=== PATIENT | male | born 1975 | race Caucasian/White ===

== ENCOUNTER 2023-10-08 07:20 | Emergency (ER) | payer BC, SELFPAY ==
--- NOTE | ~2023-10-08 | CT_ITS ---
CT LUMBAR SPINE WITHOUT CONTRAST CLINICAL INFORMATION: Midline/left lumbar pain. COMPARISON: Lumbar spine radiographs 02/18/2010. TECHNIQUE: Multidetector CT acquisition of the lumbar spine is obtained without contrast. This CT examination was performed using dose optimization techniques as appropriate, variously including the following: *Automated exposure control *Adjustment of mA and/or kV according to patient size (this includes techniques or standardized protocols for targeted exams where dose is matched to indication/reason for exam; i.e. extremities or head) *Use of iterative reconstruction technique FINDINGS: There are 5 nonrib-bearing lumbar-type vertebral bodies. Lumbar alignment is normal. The vertebral body heights are maintained. There is moderate disc volume loss at L4-L5 and mild disc volume loss at L5-S1. There are multilevel endplate osteophytes. There are no acute fractures and there are no acute subluxations. No osseous erosive changes. There is vacuum phenomenon within the SI joints bilaterally. Mild aortoiliac atherosclerotic calcification. L1-L2: No definite disc contour abnormality. No appreciable central canal stenosis nor foraminal stenosis. L2-L3: Slight annular disc bulge and mild bilateral facet arthropathy without appreciable central canal stenosis nor significant foraminal stenosis. L3-L4: Small annular disc bulge and moderate bilateral hypertrophic facet arthropathy without appreciable central canal stenosis nor significant foraminal stenosis. L4-L5: Diffuse annular disc bulge and severe bilateral hypertrophic facet arthropathy. Findings in concert result in suspected mild narrowing of the central canal, narrowing of the left greater then right subarticular zones, and moderate bilateral foraminal stenosis. L5-S1: There is a diffuse annular disc bulge and there is moderate bilateral hypertrophic facet arthropathy. No appreciable central canal stenosis. Mild to moderate bilateral foraminal encroachment. CT/CT lumbar spine wo IV con IMPRESSION: * At L4-L5, advanced multifactorial degenerative changes result in suspected mild narrowing of the central canal, narrowing of the left greater then right subarticular zones, and moderate bilateral foraminal stenosis. * Additional degenerative findings as discussed above. * If pain persists, MRI would be more sensitive in evaluation.
[2023-10-08 07:27] VITALS: BP 188/112; PULSE 87; RESP 17; TEMP 37; O2SAT 99; BMI 31.8
--- NOTE | 2023-10-08 07:58 | ED_ITS ---
HPI - Back Pain/Injury General Chief Complaint: Back Pain/Injury Stated Complaint: Back pain Time Seen by Provider: 10/08/23 07:50 Source: patient Mode of arrival: ambulatory Limitations: no limitations History of Present Illness HPI Narrative: 48 year old male with pmhx of chronic back pain presents to the ED today for evaluation of acute onset low back pain x6 days. Endorses pain to his mid lumbar/left lumbar region beginning 6 days ago. Pain is exacerbated with bearing weight on his left lower extremity. Pain intermittently radiates down left thigh. Denies trauma/injury. Endorses history of chronic back pain with degenerative changes identified on MRI years ago. Pain has been under control for the last few years until 6 days ago. He states he has been unable to work due to the pain. He has been icing the area and taking Ibuprofen at home without relief of pain. Last dose of ibuprofen was yesterday. Denies IVDU. Denies fever, chills, neck pain, bowel or bladder incontinence or retention, numb ness/tingling/weakness in the lower extremities, dysuria, hematuria, saddle anesthesia. Related Data Previous Rx's Medication Instructions Recorded gabapentin 100 mg capsule 100 mg PO BID 14 days #28 caps 10/08/23 prednisone 20 mg tablet 40 mg (2 x 20 mg) PO DAILY 5 days 10/08/23 #10 tabs Allergies Allergy/AdvReac Type Severity Reaction Status Date / Time Penicillins [PCN] Allergy Hives Verified 10/08/23 07:26 Review of Systems Review of Systems: Constitutional: No fever, chills, fatigue, night sweats, weight changes ENT/Mouth: No ear pain, hearing loss, nasal congestion, sinus pain, rhinorrhea, sore throat Eyes: No eye pain, swelling, redness, vision changes, discharge Cardio: No chest pain, palpitations, CACERES, orthopnea, peripheral edema Pulm: No SOB, cough, sputum, wheezing, dyspnea, hemoptysis GI: No nausea, vomiting, hematemesis, abdominal pain, diarrhea, constipation, hematochezia, melena : No irregular bleeding, dysuria, frequency, urgency, hesitancy, hematuria, flank pain, urinary flow changes, urinary incontinence or retention MSK: +back pain, No neck pain, joint pain, myalgias Skin: No lesions, rashes Neuro: No weakness, numbness, paresthesias, LOC, dizziness, headache All other systems reviewed and are negative. FOR[facility]LY [facility], [facility] Past Medical History Attestation statement: The following information was validated with the patient. Source: old records reviewed and nursing notes reviewed Social History Social History Advance Directives: No Physical Exam Vital Signs: Vital Signs: Last Vital Signs Temp 97.7 F 10/08/23 09:18 Pulse 53 10/08/23 09:18 Resp 16 10/08/23 09:18 BP 120/78 10/08/23 09:18 Pulse Ox 99 10/08/23 09:18 O2 Del Method Room Air 10/08/23 09:18 BMI result Body Mass Index 31.8 Patient initially hypertensive, vitals now stable. Const: General: cooperative, healthy appearing, comfortable, no acute distress, alert, awake and Physically active Orientation/consciousness: patient oriented x3 Limitations: no limitations HEENT: Head: Yes normal to inspection, Yes normocephalic and Yes atraumatic Eyes: General: appearance normal, both eyes and all related structures Pupils: Equal, round and reactive pupils present EOM: EOMs intact bilaterally Neck: Other: + no cervical midline spinous tenderness or step-off deformity. Neck: Yes normal visual inspection, Yes full ROM, Yes no lymphadenopathy and Yes no meningeal signs Resp: Effort & Inspection: normal respiratory effort and able to speak in complete sentences Auscultation: clear to auscultation bilaterally Cardio: Rate: regular rate Rhythm: regular rhythm GI: Inspection: Yes normal to inspection Palpation (GI): Soft to palpation and nontender : General: Yes no CVA tenderness Back/Spine/Pelvis: Other: + midline lumbar spinous tenderness, ten maykel to palpation over left lumbar paraspinal muscles. No step-off deformity. Ambulating slowly with antalgic gait. Back: no CVA tenderness Thoracic/Lumbar Spine: thoracic and lumbar spine normal to inspection and straight leg raise positive (Left) Pelvis: no pain with anterior-posterior compression Skin: General skin exam: no rashes or lesions noted Neuro: Other: Strength 5/5 intact throughout.? No saddle anesthesia.? Sensation intact to light touch.? Neurovascular intact distally.? General: patient oriented x3, gait normal, tone normal, moves all extremities and no meningeal signs Cranial nerves: Yes Equal, round and reactive pupils present Gait exam (Neuro): Normal gait present Motor exam (neuro): 5/5 motor strength present throughout Deep tendon reflexes (DTR's): Right patellar reflex intensity grade: 2+ and Left patellar reflex intensity grade: 2+ Pupils: Normal pupillary reactivity/response: bilateral Extrem: General: Yes normal to inspection, Yes full ROM and Yes capillary refill normal Course Course Course Narrative: 1030-- CT lumbar spine showing advanced multifactorial degenerative changes with an L4-L5 with suspected mild narrowing of the central canal and narrowing of the left greater than right subarticular zones and moderate bilateral foraminal stenosis and. > On re-evaluation, patient reports some improvement with Flexeril and ibuprofen. I discussed all workup results with patient. Symptoms consistent with lumbar degenerative arthritis with possible nerve impingement. There is no concern for acute cauda equina syndrome or cord compression at this time. He is ambulating with steady gait. Asking if he can eat food because he is hungry. > will send prednisone and gabapentin to pharmacy. Provided patient with ortho referral for follow-up. Patient has remained stable throughout ED visit today. Discussed worrisome signs and symptoms and when to return to the ED. All questions answered at this time. Patient is agreeable with disposition and stable for discharge. Medications Administered Discontinued Medications Generic Name Dose Route Start Last Admin Trade Name Jeffq PRN Reason Stop Dose Admin Cyclobenzaprine HCl 10 mg 10/08/23 08:09 10/08/23 08:22 Cyclobenzaprine Hcl 10 Mg Tablet PO 10/08/23 08:10 10 mg ONCE ONE Administration Ibuprofen 800 mg 10/08/23 08:09 10/08/23 08:21 Ibuprofen 800 Mg Tablet PO 10/08/23 08:10 800 mg ONCE ONE Administration Medical Decision Making Medical Decision Making [facility] Narrative: 48 year old male with pmhx of chronic back pain presents to the ED today for evaluation of acute onset low back pain x6 days. Patient hypertensive to 180/112, no history of high blood pressure. Vitals otherwise WNL. Afebrile. Patient is nontoxic appearing in no acute distress. On exam, there is midline tenderness over the lumbar spine without step-off deformity. Tender to palpation over the left lumbar paraspinal muscles. Positive straight leg raise to left. Sensation intact throughout. Strength 5/5 throughout. 2+ PT/DP pulses. Differential diagnosis includes case sprain/strain, disc herniation, sciatica, nerve impingement, subluxation, osteoarthritis. Unlikely nephrolithiasis, renal colic, UTI, pyelo, fracture, cord compression, cauda equina, Guillain-[place], epidural abscess. Plan for imaging and pain control. Differential Diagnosis Differential Diagnoses: The differential diagnosis associated with the presentation includes as above Admission/Observation Not indicated. Independent Interpretation I performed an independent interpretation of an: CT Scan Interpretation: I personally reviewed CT scan and agree with radiologist's interpretation. Radiology Impression Discussion of test interpretation with radiology: I have reviewed the radiologist's reading. Radiologist Impression: CT lumbar spine wo IV con IMPRESSION: * At L4-L5, advanced multifactorial degenerative changes result in suspected mild narrowing of the central canal, narrowing of the left greater then right subarticular zones, and moderate bilateral foraminal stenosis. * Additional degenerative findings as discussed above. * If pain persists, MRI would be more sensitive in evaluation. External Record Review External record reviewed: Inpatient record Prescription Management I considered prescription management with: Pain Medication and Other (Flexeril, gabapentin) Chronic Conditions Patient?s care impacted by: Other (Chronic back pain) Social Determinants Patient?s care significantly limited by Social Determinants of Health including: Other Social Determinant of Health Discharge Plan Discharge Clinical Impression: Degenerative arthritis of lumbar spine Patient Disposition: Home, Self-Care Instructions: Osteoarthritis (ED), Lower Back Exercises (ED) Additional Instructions: The results of your CT scan were discussed with you. Please follow-up with your primary care provider or orthopedic doctor. Gabapentin is a nerve medication that has been sent to your pharmacy. Take this twice daily for the next 2 weeks. Prednisone as a steroid that has been sent to your pharmacy. Take this as directed over the next 5 days to help with inflammation. You may take ibuprofen at home as needed for pain. For new or worsening symptoms, please return to the ED. In the case of an emergency call 911. Prescriptions: New prednisone 20 mg tablet 40 mg PO DAILY 5 Days Qty: 10 0RF gabapentin 100 mg capsule 100 mg PO BID 14 Days Qty: 28 0RF Ref[place]: [facility] [Provider Group] Doron Santillan MD, PhD [Physician] - Stand Alone Forms: Work/School Release Interventions: ED Discharge Assessment Last Done: 10/08/23 11:13 Discharge Date/Time: 10/08/23 11:15
[2023-10-08] MEDS: Ibuprofen 800 MG TABLET PO (08:21)
[2023-10-08] MEDS: Cyclobenzaprine HCl 10 MG TABLET PO (08:22)
[2023-10-08 09:18] VITALS: BP 120/78; PULSE 53; RESP 16; TEMP 36.5; O2SAT 99
== END 2023-10-08 11:15 | disposition home or self-care (01) ==
PROVIDERS: Emergency Provider Emergency Medicine; PCP Internal Medicine
DX: M54.50 Low back pain, unspecified (principal); M79.652 Pain in left thigh
CPT/HCPCS: 72132; 99283; 99284